=== PATIENT | male | born 1975 | race Caucasian/White ===

== ENCOUNTER 2021-11-10 08:43 | Emergency (ER) | payer BC, SELFPAY ==
[2021-11-10] VITALS (25 sets, daily range): BP systolic 136–151; BP diastolic 87–115; PULSE 74–102; TEMP 36.7; O2SAT 93–100; BMI 29.3
--- NOTE | 2021-11-10 09:02 | ED_ITS ---
HPI - SOB/Dyspnea General Date Seen: 11/10/21 Chief Complaint: Shortness of Breath/Dyspnea Stated Complaint: Asthma attack Time Seen by Provider: 11/10/21 08:48 Source: patient Mode of arrival: ambulatory Limitations: no limitations History of Present Illness HPI Narrative: Patient is a 46-year-old gentleman who presents here with complaints of shortness of breath. He was cleaning with bleach last night approximately at 9:00 p.m., he for got to open his windows, he said overnight his asthma kicked up, and this morning he tried his inhaler twice with no improvement. He does use albuterol, and uses this with both nebulize treatments and meter dose inhaler, but she has used his meter dose inhaler. He is also on Advair unknown dosage. Denies any fevers chills or sweats, he has had no exposure to COVID, and is not really interested in getting tested despite my suggestion. He is not immunized, has a history of asthma, that I reviewed his chart. He has a history of atopic eczema also. No fevers chills or sweats, no leg swelling, no recent trips, he says this feels exactly like his asthma when it occurs. MD elicited complaint: shortness of breath and asthma attack Pertinent past history: asthma Onset (ago): hour(s) (12) Context: allergen exposure Timing: constant Severity: moderate Exacerbating factors: lying flat and deep breaths Relieving factors: nothing Known history of: asthma Associated symptoms: denies other symptoms Treatment prior to arrival: bronchodilator Related Data Home oxygen amount: none Home Medications Medication Instructions Recorded Confirmed albuterol sulfate 2.5 mg/3 mL mg 11/10/21 (0.083 %) solution for nebulization albuterol sulfate 90 mcg/actuation inhalation 11/10/21 aerosol inhaler (Ventolin HFA) cetirizine 10 mg tablet mg 11/10/21 fluoxetine 40 mg capsule mg 11/10/21 fluticasone 250 mcg-salmeterol 50 inhalation 11/10/21 mcg/dose blistr powdr for inhalation (Advair Diskus) montelukast 10 mg tablet mg 11/10/21 triamcinolone acetonide 0.1 % applic topical 11/10/21 topical cream Previous Rx's Medication Instructions Recorded prednisone 50 mg tablet 50 mg PO DAILY 5 days #5 tabs 11/10/21 Allergies Allergy/AdvReac Type Severity Reaction Status Date / Time cat dander Allergy Unknown Verified 11/10/21 08:51 Review of Systems Status of ROS: Reports: 10 or more systems reviewed and unremarkable except as noted in History and below [facility] Social History Smoking Status: Never smoker Do you use any of these nicotine containing products: None Second hand tobacco smoke exposure: No How often do you have a drink containing alcohol: never How often do you have six or more drinks on one occasion: Never AUDIT-C Alcohol total score: 0 Non-prescribed substance use: denies use Exam Narrative: Exam Narrative: Patient is a very nice gentleman in room 5 in no apparent distress, is speaking to me in full to slightly broken sentences. He appears nontoxic. Sitting up, His pupils are equal round reactive to light, he has no scleral icterus redness, is TMs are normal, his oropharynx is arm all maybe a little bit reddened. No tonsillar swelling or exudates are noted, there is no lymphadenopathy, his chest shows hyperinflation bilaterally, sitting forward slightly to breathe, there are no so other signs of respiratory distress, he has musical wheezes in all lung walker on expiration, heart sounds no clicks murmurs or gallops noted, S1-S2 is normal, his abdomen is soft and scaphoid, there is no pedal splenomegaly, is extremities reveal no swelling or pitting edema, he has terrible eczema, with excoriations over his truncal region legs and arms bilaterally. And he has seborrheic dermatitis on noted on his hairline. No infections are noted. Neurologically intact in his upper lower extremities moving all extremities independently well symmetrical power Const: Vital Signs, click to edit/add: Vital Signs - 24 hr 11/10/21 08:48 11/10/21 08:53 11/10/21 08:54 Temperature 98.0 F Pulse Rate 101 H 100 Pulse Rate [Right Pulse Oximeter] 99 Blood Pressure 151/99 H Blood Pressure [Le ft Upper Arm] 151/99 H Pulse Oximetry 95 93 94 Oxygen Delivery Me thod Room Air 11/10/21 09:00 11/10/21 09:02 11/10/21 09:15 Temperature Pulse Rate 99 95 102 H Pulse Rate [Right Pulse Oximeter] Blood Pressure 150/115 H Blood Pressure [Le ft Upper Arm] Pulse Oximetry 95 93 95 Oxygen Delivery Me thod 11/10/21 09:17 11/10/21 09:18 11/10/21 09:30 Temperature Pulse Rate 92 96 76 Pulse Rate [Right Pulse Oximeter] Blood Pressure 151/87 H Blood Pressure [Le ft Upper Arm] Pulse Oximetry 100 100 100 Oxygen Delivery Me thod 11/10/21 09:32 11/10/21 09:33 11/10/21 09:45 Temperature Pulse Rate 93 102 H 101 H Pulse Rate [Right Pulse Oximeter] Blood Pressure 138/105 H Blood Pressure [Le ft Upper Arm] Pulse Oximetry 100 100 96 Oxygen Delivery Me thod 11/10/21 09:47 11/10/21 09:48 11/10/21 10:00 Temperature Pulse Rate 95 94 101 H Pulse Rate [Right Pulse Oximeter] Blood Pressure 136/101 H Blood Pressure [Le ft Upper Arm] Pulse Oximetry 97 96 93 Oxygen Delivery Me thod 11/10/21 10:01 11/10/21 10:02 11/10/21 10:15 Temperature Pulse Rate 92 98 94 Pulse Rate [Right Pulse Oximeter] Blood Pressure Blood Pressure [Le ft Upper Arm] Pulse Oximetry 94 95 94 Oxygen Delivery Me thod 11/10/21 10:16 11/10/21 10:17 11/10/21 10:30 Temperature Pulse Rate 101 H 100 93 Pulse Rate [Right Pulse Oximeter] Blood Pressure Blood Pressure [Le ft Upper Arm] Pulse Oximetry 94 95 95 Oxygen Delivery Me thod 11/10/21 10:31 11/10/21 10:32 11/10/21 10:45 Temperature Pulse Rate 74 93 100 Pulse Rate [Right Pulse Oximeter] Blood Pressure Blood Pressure [Le ft Upper Arm] Pulse Oximetry 95 96 97 Oxygen Delivery Me thod Course Reevaluation(s) Reevaluation #1: Recheck of the patient he is speaking to me in full sentences, he feels much improved, examination reveals occasional expiratory wheezes, but overall much improved. 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 We went over signs and symptoms of worsening, he should follow up if these occur, recommend follow-up primary care within the into the week. Return as needed for worsening Time: 10:54 Vital Signs Vital signs: Initial Vital Signs Temperature 98.0 F 11/10/21 08:48 Temperature Source Temporal Artery Scan 11/10/21 08:48 Pulse Rate 99 11/10/21 08:48 Blood Pressure 151/99 H 11/10/21 08:48 Blood Pressure Mean 116 11/10/21 08:48 Blood Pressure Position Supine 11/10/21 08:48 Pulse Oximetry 95 11/10/21 08:48 Oxygen Delivery Method 11/10/21 08:48 Vital Signs Temperature 98.0 F 11/10/21 08:48 Pulse Rate 99 11/10/21 08:48 Blood Pressure 151/99 H 11/10/21 08:48 Pulse Oximetry 95 11/10/21 08:48 Oxygen Delivery Method 11/10/21 08:48 Temperature 98.0 F 11/10/21 08:48 Pulse Rate 100 11/10/21 10:45 Blood Pressure 136/101 H 11/10/21 09:47 Pulse Oximetry 97 11/10/21 10:45 Oxygen Delivery Method 11/10/21 08:48 MDM - SOB/Dyspnea MDM Narrative Medical decision making narrative: Life-threatening differential diagnosis includes occluded COPD exacerbation, pulmonary edema, acute coronary syndromes, pulmonary embolism, pneumonia, and pneumothorax. Other differential diagnosis considerations include asthma, bronchitis as well as other etiologies Medical Records Attestation: I reviewed the patient's medical records. Lab Data Labs: Lab Results 11/10/21 Range/Units 09:21 SARS-CoV-2 (PCR) Negative SARS-CoV-2 (Negative) Influenza Type A (PCR) Negative PCR FLU A (Negative) Influenza Type B (PCR) Negative PCR FLU B (Negative) Discharge Plan Discharge Clinical Impression: Asthma with acute exacerbation Patient Disposition: Home, Self-Care Condition: Improved Instructions: Asthma (ED), How to Use a Metered-Dose Inhaler (ED), How to Use a Nebulizer (ED), Wheezing (ED) Additional Instructions: Home rest medications as directed I have given you prescription for prednisone, that you can use. Also given you an extra meter dose inhaler. Increasing shortness of breath, or other issue she should come back. Please use your inhaled steroid along with the prednisone. Follow-up with primary care should be done later in the week. Increasing shortness of breath, chest pain, or other issues please come back to the ER . Prescriptions: New prednisone 50 mg tablet 50 mg PO DAILY 5 Days Qty: 5 0RF No Action fluoxetine 40 mg capsule Label Comments: TAKE ONE CAPSULE BY MOUTH EVERY DAY IN THE MORNING. fluticasone propion-salmeterol [Advair Diskus] 250-50 mcg/dose blister with device INHALATION Label Comments: INHALE ONE PUFF BY MOUTH TWICE DAILY albuterol sulfate 2.5 mg /3 mL (0.083 %) solution for nebulization Label Comments: INHALE 1 VIAL (3ml) VIA NEBULIZER EVERY 4 HOURS NEEDED FOR SHORTNESS OF BREATH / WHEEZING. cetirizine 10 mg tablet Label Comments: TAKE ONE TABLET BY MOUTH ONE TIME DAILY triamcinolone acetonide 0.1 % cream TOPICAL Label Comments: Apply topically to affected area(s) 3 times daily. Do not use for more than 2 weeks in a row montelukast 10 mg tablet Label Comments: Take 1 Tablet (10 mg) by mouth at bedtime. albuterol sulfate [Ventolin HFA] 90 mcg/actuation HFA aerosol inhaler INHALATION Label Comments: INHALE 2 PUFFS BY MOUTH 4 TIMES DAILY IF NEEDED FOR SHORTNESS OF BREATH OR WHEEZING. Follow Up/Referrals: Tim Minor MD [Referring] - Stand Alone Forms: [employer] Info Instructions
[2021-11-10] MEDS: IPRAT-ALBUT 0.5-2.5 MG/3 ML NEB 1 NEB IH (09:03)
[2021-11-10] MEDS: predniSONE 10 MG TABLET 50 MG PO (09:06)
[2021-11-10] MEDS: ALBUTEROL SULFATE 2.5 MG/3 ML VIAL.NEB NEB ×2 (09:14→09:18)
--- NOTE | 2021-11-10 09:20 | ED.NURSE ---
RT in RM to assess pt, RT administered nebs to pt while in RM.
--- NOTE | 2021-11-10 10:00 | ED.NURSE ---
Pt reporting improvement in SOB symptoms. Pt requesting a soda, pt provided with Coca[employer].
[2021-11-10 10:04] LABS: PCR FLU A Negative PCR FLU A (Negative); PCR FLU B Negative PCR FLU B (Negative); SARS PCR* Negative SARS-CoV-2 (Negative)
--- NOTE | 2021-11-10 10:33 | RESP.RT ---
pt assessed. Tight expiratory wheezing in all walker. On RA SP)2 97% Sitting slightly forward. RR 24, Talking rapidly in full sentences. PT not aware of any triggers, however when he speaks of his living situation, a number a possibility, including a cat. He states he does have his inhalers at home. Pt was given a duoneb by RN before arrival. I followed up with 2.5 mg of albuterol back to back. Improved aeration, with Inspiratory and Expiratory wheezing. Pt taking his prednisone. Would given another albuterol neb at 1045 and follow up with a Duonb at 1125 or 1130
== END 2021-11-10 11:11 | disposition home or self-care (01) ==
PROVIDERS: Emergency Provider Family Medicine; PCP Student in an Organized Health Care Education/Training Program
DX: J45.901 Unspecified asthma with (acute) exacerbation (principal)
CPT/HCPCS: 87631; 94640; 99284; J7512

== ENCOUNTER 2023-08-09 01:34 | Emergency (ER) | payer BC, SELFPAY ==
[2023-08-09 01:41] VITALS: BP 161/92; PULSE 91; RESP 18; TEMP 36.3; O2SAT 93; BMI 29.8
--- NOTE | 2023-08-09 01:53 | ED.GENADULT ---
HPI - General Adult General Chief complaint: Asthma Stated complaint: asthma attack Time Seen by Provider: 08/09/23 01:53 History of Present Illness HPI narrative: about 1 hour hx of asthma attack, patients usually uses an albuterol neb at home but reports it is not working so he has not taken any meds for this. 48-year-old man presenting to the emergency department with concern of attack of asthma. Does usually use albuterol nebulization but having trouble with a nebulizer. No medications. It abruptly. No fever. Not really coughing more or less than usual. Contrary to record clearly does smoke. He does endorse this in conversation. Related Data Home Medications ?Medication ?Instructions ?Recorded ?Confirmed albuterol sulfate 2.5 mg/3 mL mg 11/10/21 (0.083 %) solution for nebulization albuterol sulfate 90 mcg/actuation inhalation 11/10/21 aerosol inhaler (Ventolin HFA) cetirizine 10 mg tablet mg 11/10/21 fluoxetine 40 mg capsule mg 11/10/21 fluticasone 250 mcg-salmeterol 50 inhalation 11/10/21 mcg/dose blistr powdr for inhalation (Advair Diskus) montelukast 10 mg tablet mg 11/10/21 triamcinolone acetonide 0.1 % applic topical 11/10/21 topical cream Previous Rx's ?Medication ?Instructions ?Recorded prednisone 50 mg tablet 50 mg PO DAILY 5 days #5 tabs 11/10/21 ipratropium 0.5 mg-albuterol 3 mg 3 ml inhalation Q6-8H PRN For 08/09/23 (2.5 mg base)/3 mL nebulization shortness of breath or wheezing soln #90 mL Allergies Allergy/AdvReac Type Severity Reaction Status Date / Time cat dander Allergy Unknown Verified 11/10/21 08:51 Review of Systems Status of ROS: Reports: 6 or more systems reviewed and unremarkable except as noted in History and below PFSH PFSH Social History Smoking Status: Never smoker Do you use any of these nicotine containing products: None Second hand tobacco smoke exposure: No How often do you have a drink containing alcohol: never How often do you have six or more drinks on one occasion: Never AUDIT-C Alcohol total score: 0 Non-prescribed substance use: denies use Exam Narrative: Exam Narrative: Pleasant. Talkative. Mostly edentulous. Lung auscultation though is moving very little air. There trace expiratory wheezes. Diffuse seborrhea and heavy eczema particularly over the hands forearms. Heart in mildly elevated rate but regular rhythm. Extremities are thin and without edema. Const: Vital Signs, click to edit/add: Vital Signs - 24 hr 08/09/23 01:41 Temperature 97.4 F L Pulse Rate [Pulse Oximeter] 91 Respiratory Rate 18 Blood Pressure [Ri ght Upper Arm] 161/92 H Pulse Oximetry 93 Oxygen Delivery Me thod Room Air Documenting provider has reviewed patient's vital signs: yes Course Vital Signs Vital signs: Initial Vital Signs Temperature 97.4 F L 08/09/23 01:41 Temperature Source Temporal Artery Scan 08/09/23 01:41 Pulse Rate 91 08/09/23 01:41 Respiratory Rate 18 08/09/23 01:41 Blood Pressure 161/92 H 08/09/23 01:41 Blood Pressure Mean 115 H 08/09/23 01:41 Blood Pressure Position Sitting 08/09/23 01:41 Pulse Oximetry 93 08/09/23 01:41 Oxygen Delivery Method Room Air 08/09/23 01:41 Vital Signs Temperature 97.4 F L 08/09/23 01:41 Pulse Rate 91 08/09/23 01:41 Respiratory Rate 18 08/09/23 01:41 Blood Pressure 161/92 H 08/09/23 01:41 Pulse Oximetry 93 08/09/23 01:41 Oxygen Delivery Method Room Air 08/09/23 01:41 Temperature 97.4 F L 08/09/23 01:41 Pulse Rate 91 08/09/23 01:41 Respiratory Rate 18 08/09/23 01:41 Blood Pressure 161/92 H 08/09/23 01:41 Pulse Oximetry 93 08/09/23 01:41 Oxygen Delivery Method Room Air 08/09/23 01:41 Medications Administered Medications: Discontinued Medications Generic Name Dose Route Start Last Admin Trade Name Freq PRN Reason Stop Dose Admin Albuterol/Ipratropium 1 neb 08/09/23 01:58 08/09/23 02:03 Iprat-Albut 0.5-2.5 Mg/3 Ml Neb IH 08/09/23 01:59 1 neb ONCE ONE Administration Prednisone 60 mg 08/09/23 01:58 08/09/23 02:10 Prednisone 20 Mg Tablet PO 08/09/23 01:59 60 mg ONCE ONE Administration Medical Decision Making MDM Narrative Medical decision making narrative: Does sound to be typical asthma exacerbation. Though I think likely has COPD. Would consider this COPD exacerbation particular with history of nicotine dependence. Has not had recent pulmonary function testing or other evaluation per his recollection. Ordered for DuoNeb. Pending improvement here would consider further evaluation for infectious etiology otherwise, pneumonia, pulmonary embolus, pneumothorax. Was in usual state of health with rather abrupt onset as noted above. Also given dose of prednisone. On reassessment is definitely moving more air. He feels better; feels like his chest is less tight. Feels well enough to leave the emergency department. See patient discharge plan for further discussion Medical Records Medical records reviewed: Yes I reviewed the patient's medical records Discharge Plan Discharge Clinical Impression: Asthma exacerbation Patient Disposition: Home, Self-Care Condition: Improved Additional Instructions: Please take this nebulizer tubing and cup with you. I understand you have a prescription for a new nebulizer waiting. I am sending in some DuoNebs for you as well. I would take those 3-4 times daily over the next 3 days. Would consider following up for re-evaluation of pulmonary function to be sure that we are optimizing treatment for you. Do not take more than 9 treatments of albuterol in a 24 hour period. Please do you can to quit smoking. Prescriptions: New ipratropium-albuterol 0.5 mg-3 mg(2.5 mg base)/3 mL solution for nebulization 3 ml inhalation Q6-8H PRN (Reason: For shortness of breath or wheezing) Qty: 90 0RF No Action fluoxetine 40 mg capsule Patient Comments: TAKE ONE CAPSULE BY MOUTH EVERY DAY IN THE MORNING. fluticasone propion-salmeterol [Advair Diskus] 250-50 mcg/dose blister with device INHALATION Patient Comments: INHALE ONE PUFF BY MOUTH TWICE DAILY albuterol sulfate 2.5 mg /3 mL (0.083 %) solution for nebulization Patient Comments: INHALE 1 VIAL (3ml) VIA NEBULIZER EVERY 4 HOURS NEEDED FOR SHORTNESS OF BREATH / WHEEZING. cetirizine 10 mg tablet Patient Comments: TAKE ONE TABLET BY MOUTH ONE TIME DAILY triamcinolone acetonide 0.1 % cream TOPICAL Patient Comments: Apply topically to affected area(s) 3 times daily. Do not use for more than 2 weeks in a row montelukast 10 mg tablet Patient Comments: Take 1 Tablet (10 mg) by mouth at bedtime. albuterol sulfate [Ventolin HFA] 90 mcg/actuation HFA aerosol inhaler INHALATION Patient Comments: INHALE 2 PUFFS BY MOUTH 4 TIMES DAILY IF NEEDED FOR SHORTNESS OF BREATH OR WHEEZING. prednisone 50 mg tablet 50 mg PO DAILY 5 Days Qty: 5 0RF Follow Up/Referrals: WES GOMEZ DO [Primary Care Provider] - Stand Alone Forms: [employer] Info Instructions
[2023-08-09] MEDS: IPRAT-ALBUT 0.5-2.5 MG/3 ML NEB 1 NEB IH (02:03)
[2023-08-09] MEDS: predniSONE 20 MG TABLET 60 MG PO (02:10)
== END 2023-08-09 02:49 | disposition home or self-care (01) ==
PROVIDERS: Emergency Provider Family Medicine; PCP Student in an Organized Health Care Education/Training Program
DX: J45.901 Unspecified asthma with (acute) exacerbation (principal)
CPT/HCPCS: 94640; 99284; J7512

== ENCOUNTER 2023-11-02 08:07 | Emergency (ER) | payer BC, SELFPAY ==
[2023-11-02 08:12] VITALS: BP 142/105; PULSE 103; RESP 28; TEMP 36.9; O2SAT 79; BMI 31.4
[2023-11-02 08:21] VITALS: O2SAT 95
--- NOTE | 2023-11-02 08:22 | CRLHL7_ITS ---
For Patients: As a result of the Century Cures Act, medical imaging exams and procedure reports are released immediately into your electronic medical record. You may view this report before your referring provider. If you have questions, please contact your health care provider. Indication: Shortness of breath Technique: Chest 1 view Comparison: Chest x-ray 07/10/2017 Findings/Impression: Cardiovascular and mediastinum: Heart size and vasculature are normal in caliber and appearance. Lungs and pleural space: No pleural effusion or pneumothorax. Mild bilateral bronchial wall thickening which can be seen in bronchitis reactive airways disease. Minimal discoid atelectasis. Bones and soft tissues: No acute findings. Dictated by Elias Mccoy MD @ 11/02/2023 8:59:19 AM (Electronically Signed)
--- NOTE | 2023-11-02 08:25 | ED.GENADULT ---
HPI - General Adult General Date Seen: 11/02/23 Chief complaint: Shortness of Breath/Dyspnea Stated complaint: cant breathe asthma attack Time Seen by Provider: 11/02/23 08:07 Source: patient, RN notes reviewed and old records reviewed Mode of arrival: ambulatory Limitations: no limitations History of Present Illness HPI narrative: Patient is a 48-year-old man who presents for evaluation of difficulty breathing which he relates to an asthma exacerbation. He says he has been having trouble for the past few hours, has tried his albuterol neb and inhaler without good relief. He specifically denies any chest pain, lower extremity swelling or pain, fevers, cough, congestion, vomiting, diarrhea. He tells me that he has previously been hospitalized for asthma, though I do not see anything in our records. He denies prior intubation or ICU stay. He denies tobacco use or alcohol use. Here today with his dad. Related Data Home Medications ?Medication ?Instructions ?Recorded ?Confirmed albuterol sulfate 2.5 mg/3 mL mg 11/10/21 (0.083 %) solution for nebulization albuterol sulfate 90 mcg/actuation inhalation 11/10/21 aerosol inhaler (Ventolin HFA) cetirizine 10 mg tablet mg 11/10/21 fluoxetine 40 mg capsule mg 11/10/21 fluticasone 250 mcg-salmeterol 50 inhalation 11/10/21 mcg/dose blistr powdr for inhalation (Advair Diskus) montelukast 10 mg tablet mg 11/10/21 triamcinolone acetonide 0.1 % applic topical 11/10/21 topical cream Previous Rx's ?Medication ?Instructions ?Recorded prednisone 50 mg tablet 50 mg PO DAILY 5 days #5 tabs 11/10/21 ipratropium 0.5 mg-albuterol 3 mg 3 ml inhalation Q6-8H PRN For 08/09/23 (2.5 mg base)/3 mL nebulization shortness of breath or wheezing soln #90 mL Allergies Allergy/AdvReac Type Severity Reaction Status Date / Time cat dander Allergy Unknown Verified 11/02/23 10:06 Review of Systems Status of ROS: Reports: 10 or more systems reviewed and unremarkable except as noted in History and below PFSH PFSH Social History Smoking Status: Never smoker Do you use any of these nicotine containing products: None Second hand tobacco smoke exposure: No How often do you have a drink containing alcohol: never How often do you have six or more drinks on one occasion: Never AUDIT-C Alcohol total score: 0 Non-prescribed substance use: denies use service: No Exam Narrative: Exam Narrative: Vital signs as noted above. In general, an alert, middle aged male who looks short of breath. He is speaking in long phrases. Head: Normocephalic, atraumatic. Eyes: Pupils are equal reactive. Extraocular movements are full. Conjunctivae are normal. ENT: Mucous membranes are moist. Neck: Supple without lymphadenopathy. Heart: Regular rate and rhythm. No murmur or rub. Lungs: Breath sounds are a little quiet though he is moving air. No significant wheezing at the time of my initial exam. Abdomen: Soft and nontender. No organomegaly. Extremities: Well perfused. No edema. No calf tenderness. Pulses intact. Neurologic: Patient is alert and oriented to person and place. Speech is fluent. Face is symmetric. Moves all extremities equally. Affect: Normal. Skin: Warm and dry. Well perfused. Diffuse seborrhea. Const: Vital Signs, click to edit/add: Vital Signs - 24 hr 11/02/23 08:12 11/02/23 08:21 Temperature 98.5 F Pulse Rate [Pulse Oximeter] 103 H Respiratory Rate 28 H Blood Pressure [Ri ght Upper Arm] 142/105 H Pulse Oximetry 79 L 95 Oxygen Delivery Me thod Room Air Course Course ED Course: On arrival, patient was significantly hypoxic. He was placed on oxygen by OxyMask at 10 L. O2 sats are 93-95%. He still has a little bit of increased work of breathing however. I do not hear significant bronchospasm but will try DuoNeb as he is possibly not moving enough air to be wheezy yet. If we do not note any change with DuoNeb, would consider BiPAP for respiratory support. Chest x-ray, labs pending. EKG showed a sinus tachycardia, ventricular rate of 107, frequent PVCs. There are enough PVCs that it is a little hard to definitively say, but there is a suggestion of electrical alternans. I did look with the bedside ultrasound, no significant pericardial effusion. Right ventricle looks normal, the right atrium did look enlarged to me. He also seems to have somewhat poor movement of the anterior wall, he does not note prior history of any cardiac problems. He is fairly limited in what he wants to do here, did not want an IV, did not want to change into a gown, ultimately did agree those things. After DuoNeb, he is now wheezing, he feels improved. He is being weaned off of oxygen. Will see how he does and if he needs additional treatment. Labs are mostly pending but hemoglobin is 12.8, normal white blood cell count. Venous gas shows a pH of 7 point 3 8, pCO2 44 and bicarb of 26, so this is reassuring. Remainder of labs are pending. D-dimer was elevated at 2 and I did recommend a CT scan of the chest. Metabolic panel was normal, LFTs notable only for an AST of 46. BNP was 572, CRP normal. CT scan of the chest by my review did not show evidence of pulmonary embolism, he did have a little bit of infiltrate tore something in the right anterior lung, radiology reads this as follows: FINDINGS: : HEART and MEDIASTINUM: The heart size is normal. There is no mediastinal or hilar adenopathy or mass. There is no pericardial effusion. PULMONARY ARTERIAL CIRCULATION: There is no visible intraluminal filling defect to suggest pulmonary embolus. LUNGS and PLEURAL SPACES: A few linear bands are noted at the lung bases consistent with atelectasis or scarring. A dense band of what is likely scarring is also noted anteriorly in the right upper lobe. No pleural effusion or pneumothorax VISUALIZED UPPER ABDOMEN: The limited visualized upper abdominal structures appear normal. There has been a cholecystectomy OSSEOUS STRUCTURES: Age-appropriate appearance. No acute fracture or destructive process.There is a left paravertebral nodule identified. This measures about 9 millimeters and is best seen on series 4, image 42. This is low-density and does not apparently enhance. This may be pleural-based or associated with paravertebral soft tissues unrelated to the lung. This is likely benign though I would recommend a six-month follow-up CT. TUBES and LINES: None. IMPRESSION: 1. There is no evidence of acute pulmonary embolus. 2. Linear areas of atelectasis and scarring. 3. Small 9 millimeter left paravertebral nodule of uncertain clinical significance. This may be arising from the pleura or the paravertebral soft tissues. Recommend a six-month follow-up CT to re-evaluate this area. Findings were discussed with the patient, I have asked him to follow up with primary care for a repeat CT in 6 months time. With regard to his presentation today, he is improved, did still have some wheezing and I gave him a 2nd neb, albuterol 2.5 mg. He is feeling better, not requiring oxygen, and I think can go home with treatment for asthma exacerbation. If he is worsening, has new symptoms such as significant chest pain, fevers, worsening shortness of breath etcetera return at any time. Workup today does not reveal any evidence of pneumonia, congestive heart failure, acute coronary syndrome, pulmonary embolism, or other acute findings. Vital Signs Vital signs: Initial Vital Signs Respiratory Effort Labored 11/02/23 08:11 Respiratory Depth Normal 11/02/23 08:11 Respiratory Pattern Tachypnea 11/02/23 08:11 Vital Signs Temperature 98.5 F 11/02/23 08:12 Pulse Rate 103 H 11/02/23 08:12 Respiratory Rate 28 H 11/02/23 08:12 Blood Pressure 142/105 H 11/02/23 08:12 Pulse Oximetry 79 L 11/02/23 08:12 Oxygen Delivery Method Room Air 11/02/23 08:12 Temperature 98.5 F 11/02/23 08:12 Pulse Rate 103 H 11/02/23 08:12 Respiratory Rate 28 H 11/02/23 08:12 Blood Pressure 142/105 H 11/02/23 08:12 Pulse Oximetry 95 11/02/23 08:21 Oxygen Delivery Method Room Air 11/02/23 08:12 Medications Administered Medications: Discontinued Medications Generic Name Dose Route Start Last Admin Trade Name Freq PRN Reason Stop Dose Admin Albuterol 2.5 mg 11/02/23 10:43 11/02/23 10:49 Albuterol Sulfate 2.5 Mg/3 Ml Vial.Neb NEB 11/02/23 10:44 2.5 mg ONCE ONE Administration Albuterol/Ipratropium 1 neb 11/02/23 08:21 11/02/23 08:35 Iprat-Albut 0.5-2.5 Mg/3 Ml Neb IH 11/02/23 08:22 1 neb ONCE ONE Administration Diphenhydramine HCl 50 mg 11/02/23 11:46 11/02/23 11:59 Diphenhydramine 25 Mg Capsule PO 11/02/23 11:47 50 mg ONCE ONE Administration Prednisone 60 mg 11/02/23 08:21 11/02/23 08:35 Prednisone 20 Mg Tablet PO 11/02/23 08:22 60 mg ONCE ONE Administration Medical Decision Making Lab Data Labs: Lab Results 11/02/23 Range/Units 08:25 WBC 9.74 (4.50-11.00) K/uL RBC 4.45 (4.30-5.90) m/uL Hgb 12.8 L (13.5-17.5) gm/dL Hct 39.5 (37.0-53.0) % MCV 89 (80-100) fL MCH 29 (26-34) pg MCHC 32 (32-36) gm/dL RDW Coeff of Lola 13.2 (11.5-15.5) % Plt Count 309 (140-440) K/uL Neut % (Auto) 50.1 (42.0-72.0) % Lymph % (Auto) 19.2 L (20-44) % [place] % (Auto) 5.9 (0.0-11.0) % Eos % (Auto) 24.1 H (0.0-7.0) % Baso % (Auto) 0.5 (0.0-3.0) % Neut # (Auto) 4.88 (1.7-7.0) K/uL Lymph # (Auto) 1.90 (0.90-2.90) K/uL [place] # (Auto) 0.60 (0.00-0.90) K/UL Eos # (Auto) 2.30 H (0.00-0.50) K/uL Baso # (Auto) 0.05 (0.00-0.30) K/uL Abs Immat Gran (auto) 0.02 (0.00-0.30) K/uL Imm/Tot Granulo (auto) 0.2 % D-Dimer Quant (PE/DVT) 2.02 H (0.00-0.50) ug/ml VBG pH 7.385 (7.32-7.43) VBG pCO2 44 (40-50) mmHG VBG pO2 66.9 H (25-47) mmHG VBG HCO3 26 (21-28) mmol/L Sodium 138 (135-149) mmol/L Potassium 3.7 (3.6-5.1) mmol/L Chloride 107 (96-114) mmol/L Carbon Dioxide 26 (20-32) mmol/L Anion Gap 5 L (7-15) mEq/L BUN 11 (5-24) mg/dL Creatinine 1.0 (0.5-1.5) mg/dL Estimated Creat Clear 97.26 Estimated GFR 93 ml/min Glucose 95 (60-115) mg/dL Calcium 8.4 (8.4-10.6) mg/dL Magnesium 2.3 (1.5-2.6) mg/dL Total Bilirubin 0.5 (0.1-1.5) mg/dL Direct Bilirubin 0.2 (0.0-0.5) mg/dL AST 46 H (12-35) U/L ALT 38 (4-50) U/L Alkaline Phosphatase 87 (40-150) U/L C-Reactive Protein 0.6 (0.5-1.0) mg/dL NT-Pro-B Natriuret Pep 572 pg/mL Total Protein 5.6 L (6.0-8.3) g/dL Albumin 3.4 (3.3-5.0) g/dL POC Troponin I 0.01 (0.01-0.04) ng/ml Discharge Plan Discharge Clinical Impression: Asthma with acute exacerbation Patient Disposition: Home, Self-Care Condition: Improved Instructions: Asthma (DC) Additional Instructions: Take prednisone as prescribed. Continue to use your albuterol as needed. For significant shortness of breath, new symptoms such as high fevers, chest pain or other worsening return to the ER. The radiologist has recommended that you have a repeat CT scan in 6 months. Please arrange this through your primary care doctor. Prescriptions: No Action ipratropium-albuterol 0.5 mg-3 mg(2.5 mg base)/3 mL solution for nebulization 3 ml inhalation Q6-8H PRN (Reason: For shortness of breath or wheezing) Qty: 90 0RF fluoxetine 40 mg capsule Patient Comments: TAKE ONE CAPSULE BY MOUTH EVERY DAY IN THE MORNING. fluticasone propion-salmeterol [Advair Diskus] 250-50 mcg/dose blister with device INHALATION Patient Comments: INHALE ONE PUFF BY MOUTH TWICE DAILY albuterol sulfate 2.5 mg /3 mL (0.083 %) solution for nebulization Patient Comments: INHALE 1 VIAL (3ml) VIA NEBULIZER EVERY 4 HOURS NEEDED FOR SHORTNESS OF BREATH / WHEEZING. cetirizine 10 mg tablet Patient Comments: TAKE ONE TABLET BY MOUTH ONE TIME DAILY triamcinolone acetonide 0.1 % cream TOPICAL Patient Comments: Apply topically to affected area(s) 3 times daily. Do not use for more than 2 weeks in a row montelukast 10 mg tablet Patient Comments: Take 1 Tablet (10 mg) by mouth at bedtime. albuterol sulfate [Ventolin HFA] 90 mcg/actuation HFA aerosol inhaler INHALATION Patient Comments: INHALE 2 PUFFS BY MOUTH 4 TIMES DAILY IF NEEDED FOR SHORTNESS OF BREATH OR WHEEZING. prednisone 50 mg tablet 50 mg PO DAILY 5 Days Qty: 5 0RF Follow Up/Referrals: WES GOMEZ DO [Primary Care Provider] - Stand Alone Forms: [employer] Info Instructions
[2023-11-02] MEDS: predniSONE 20 MG TABLET 60 MG PO (08:35)
[2023-11-02] MEDS: IPRAT-ALBUT 0.5-2.5 MG/3 ML NEB 1 NEB IH (08:35)
[2023-11-02 08:37] LABS: Basophils Absolute Auto 0.05 K/uL (0.00-0.30); Basophils Percent Auto 0.5 % (0.0-3.0); Eosinophils Percent Auto 24.1 % (0.0-7.0); Hematocrit 39.5 % (37.0-53.0); Hemoglobin* 12.8 gm/dL (13.5-17.5); Immature Granulocytes Abs Auto 0.02 K/uL (0.00-0.30); Immature Granulocytes Pct Auto 0.2 %; Lymphocytes Percent Auto 19.2 % (20-44); Mean Corpuscular HGB Conc 32 gm/dL (32-36); Mean Corpuscular Hemoglobin 29 pg (26-34); Mean Corpuscular Volume 89 fL (80-100); Monocytes Percent Auto 5.9 % (0.0-11.0); Neutrophils Absolute Auto 4.88 K/uL (1.7-7.0); Neutrophils Percent Auto 50.1 % (42.0-72.0); Platelet Count* 309 K/uL (140-440); RDW Coefficient of Variation % 13.2 % (11.5-15.5); Red Blood Count 4.45 m/uL (4.30-5.90); White Blood Count* 9.74 K/uL (4.50-11.00)
[2023-11-02 08:40] LABS: HCO3 VBG 26 mmol/L (21-28); PCO2 VBG 44 mmHG (40-50); PO2 VBG 66.9 mmHG (25-47); pH VBG 7.385 (7.32-7.43)
[2023-11-02 08:41] LABS: Slide Review Reflex No
[2023-11-02 08:55] LABS: Albumin* 3.4 g/dL (3.3-5.0); Chloride* 107 mmol/L (96-114)
[2023-11-02 08:56] LABS: Potassium* 3.7 mmol/L (3.6-5.1); Sodium* 138 mmol/L (135-149)
[2023-11-02 08:57] LABS: Troponin, Point-of-Care* 0.01 ng/ml (0.01-0.04)
[2023-11-02 08:58] LABS: Est. Creatinine Clearance* 97.26; Estimated Glomerular Filt Rate 93 ml/min
[2023-11-02 08:59] LABS: Alanine Aminotransferase* 38 U/L (4-50); Alkaline Phosphatase* 87 U/L (40-150); Anion Gap 5 mEq/L (7-15); Aspartate Amino Transferase* 46 U/L (12-35); Bilirubin Direct* 0.2 mg/dL (0.0-0.5); Bilirubin Total* 0.5 mg/dL (0.1-1.5); Blood Urea Nitrogen* 11 mg/dL (5-24); Carbon Dioxide* 26 mmol/L (20-32); Glucose* 95 mg/dL (60-115); Total Protein* 5.6 g/dL (6.0-8.3)
[2023-11-02 09:00] LABS: Calcium* 8.4 mg/dL (8.4-10.6); Magnesium* 2.3 mg/dL (1.5-2.6)
[2023-11-02 09:01] LABS: D Dimer Quantitative* 2.02 ug/ml (0.00-0.50)
[2023-11-02 09:02] LABS: C Reactive Protein* 0.6 mg/dL (0.5-1.0)
--- NOTE | 2023-11-02 09:21 | CRLHL7_ITS ---
For Patients: As a result of the Century Cures Act, medical imaging exams and procedure reports are released immediately into your electronic medical record. You may view this report before your referring provider. If you have questions, please contact your health care provider. INDICATION: Hypoxia. Elevated D-dimer. COMPARISON: None TECHNIQUE: : CT examination of the chest was performed with the uneventful intravenous administration of 95 cc of Isovue 370 while thin axial sections were obtained from above the apices of the lungs to the lung bases. The examination was timed as a pulmonary artery angiogram. Please note that all CT scans at this facility use dose modulation, iterative reconstruction, and/or weight-based dosing when appropriate to reduce radiation dose to as low as reasonably achievable. FINDINGS: : HEART and MEDIASTINUM: The heart size is normal. There is no mediastinal or hilar adenopathy or mass. There is no pericardial effusion. PULMONARY ARTERIAL CIRCULATION: There is no visible intraluminal filling defect to suggest pulmonary embolus. LUNGS and PLEURAL SPACES: A few linear bands are noted at the lung bases consistent with atelectasis or scarring. A dense band of what is likely scarring is also noted anteriorly in the right upper lobe. No pleural effusion or pneumothorax VISUALIZED UPPER ABDOMEN: The limited visualized upper abdominal structures appear normal. There has been a cholecystectomy OSSEOUS STRUCTURES: Age-appropriate appearance. No acute fracture or destructive process.There is a left paravertebral nodule identified. This measures about 9 millimeters and is best seen on series 4, image 42. This is low-density and does not apparently enhance. This may be pleural-based or associated with paravertebral soft tissues unrelated to the lung. This is likely benign though I would recommend a six-month follow-up CT. TUBES and LINES: None. IMPRESSION: 1. There is no evidence of acute pulmonary embolus. 2. Linear areas of atelectasis and scarring. 3. Small 9 millimeter left paravertebral nodule of uncertain clinical significance. This may be arising from the pleura or the paravertebral soft tissues. Recommend a six-month follow-up CT to re-evaluate this area. Please note that all CT scans at this facility use dose modulation, iterative reconstruction, and/or weight-based dosing when appropriate to reduce radiation dose to as low as reasonably achievable. Dictated by Jae Hopkins MD @ 11/02/2023 10:41:37 AM (Electronically Signed)
[2023-11-02 09:28] LABS: NT Pro B Type NatriureticPept* 572 pg/mL
[2023-11-02] MEDS: ALBUTEROL SULFATE 2.5 MG/3 ML VIAL.NEB NEB (10:49)
[2023-11-02] MEDS: diphenhydrAMINE 25 MG CAPSULE 50 MG PO (11:59)
== END 2023-11-02 11:59 | disposition home or self-care (01) ==
PROVIDERS: Emergency Provider Emergency Medicine; PCP Student in an Organized Health Care Education/Training Program
DX: J45.901 Unspecified asthma with (acute) exacerbation (principal)
CPT/HCPCS: 36415; 71045; 71275; 80048; 80076; 82803; 83735; 83880; 84484; 85025; 85379; 86140; 93005; 94640; 94761; 99284; 99285; A9270; J7512; Q9967

== ENCOUNTER 2023-12-16 15:08 | Emergency (ER) | payer BC, SELFPAY ==
[2023-12-16] VITALS (7 sets, daily range): BP systolic 118; BP diastolic 88; PULSE 85–98; RESP 22; TEMP 37; O2SAT 95–98; BMI 31.4
--- NOTE | 2023-12-16 15:26 | CRLHL7_ITS ---
For Patients: As a result of the Century Cures Act, medical imaging exams and procedure reports are released immediately into your electronic medical record. You may view this report before your referring provider. If you have questions, please contact your health care provider. INDICATION: Shortness of breath TECHNIQUE: Chest 2 views. COMPARISON: CT PE 11/02/2023, chest radiograph 11/02/2023 FINDINGS: Cardiovascular and mediastinum: Heart size is normal. Unremarkable mediastinum. Lungs and pleural spaces: Lungs are clear. No sign of infiltrate or mass. No sign of pleural effusion. No pneumothorax. Bones and soft tissues: No significant findings. IMPRESSION: No acute or significant findings. Dictated by Mercedes Akbar MD @ 12/16/2023 3:52:03 PM (Electronically Signed)
--- OUTSIDE RECORDS SUMMARY | 2023-12-16 15:45 | XMS_ITS | Clinical Summary ---
Author Organization [facility] Address [place], [place] [address] Care Team Providers Care [employer]able [employer] Tr[employer] Name Role Phone Lucas Rasheed MD Primary Care Provider Allergies Active Allergy Reactions Criticality Noted Date Comments Cats (Fur, Dander, Saliva) 01/27/2010 House Dust Shortness Of Breath 03/05/2008 Unlisted Allergen (Include Detail In Comments) Other - Describe In Comment Field 06/28/2006 spicy foods Medications Medication Sig Dispensed Refills Start Date End Date Status albuterol 0.083% (2.5 mg/3 mL) neb solutionIndications: Moderate persistent asthma without complication Inhale 3 mL (2.5 mg) via a nebulizer every 6 hours if needed for Shortness Of Breath. 120 mL 1 04/11/2023 Active fluticasone propion-salmeteroL (ADVAIR) 250-50 mcg/Dose diskus inhalerIndications:M oderate persistent asthma without complication Inhale 1 Puff by mouth two times daily. 60 Each 9 04/11/2023 Active loratadine (CLARITIN) 10 mg tabletIndications:Se asonal allergic rhinitis due to pollen Take 1 Tablet (10 mg) by mouth once daily. 90 Tablet 3 04/11/2023 Active montelukast (SINGULAIR) 10 mg tabletIndications:Mo derate persistent asthma without complication Take 1 Tablet (10 mg) by mouth at bedtime. 90 Tablet 3 04/11/2023 Active triamcinolone (ARISTOCORT; KENALOG) 0.1 % creamIndications:Pso riasis Apply topically to affected area(s) three times daily. Do not use for more than 2 weeks in a row 80 g 3 04/11/2023 Active cetirizine (ZYRTEC) 10 mg tabletIndications:Se asonal allergic rhinitis due to pollen TAKE ONE TABLET BY MOUTH ONE TIME DAILY 90 Tablet 3 05/13/2023 Active NebulizerIndications :Moderate persistent asthma without complication Nebulizer, disposable neb kit x 4, reuseable neb kit x 1, mask x 1, filters x 1. Frequency of use: daily; Medication: albuterol 0.083% (2.5 mg/3 mL) neb solution Length of need: 99 months 1 Each 07/07/2023 Active Ventolin HFA 90 mcg/actuation inhalerIndications:M oderate persistent asthma without complication INHALE 2 PUFFS BY MOUTH EVERY 2-3 HOURS NEEDED FOR BREATHING. 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 [phone] Anxiety state, unspecified 08/22/2007 0 2020 Dysthymic disorder 08/22/2007 Unspecified asthma(493.90) 05/23/2006 0 2020 Encounters Date Type Department Care Team Description 11/02/2023 Orders Only [facility] Scanner 1 scan: (1-Ord) [facility], XR CHEST 1V PORTABLE, 11/02/2023 11/02/2023 Orders Only [facility] Scanner 1 scan: (1-Ord) [facility], CT ANGIO CHEST, 11/02/2023 10/11/2023 Telephone [facility] [address] [place] [address] Lucas Rasheed MD Form from Last 3 Months Immunizations Name Administration Dates Next Due Influenza, IIV3 (Age >=3 years) 11/13/2009,03/04 Family History Medical History Relation Name Comments Diabetes Brother Cancer-colon No Family History Cancer-prostate No Family History Heart attack No Family History Relation Name Status Comments Brother Alive Father Alive Social History Tobacco Use Types Packs/Day Years Used Date Smoking Tobacco: Former Smokeless Tobacco: Never Tobacco Cessation:Counseling Given: No Comments:tried for a while Alcohol Use Standard Drinks/Week Comments No 0 (1 standard drink = 0.6 oz pur e alcohol) PHQ-2 Answer Date Recorded PHQ-2 TOTAL SCORE 3 06/02/2022 Social Connections Answer Date Recorded Frequency of Communication with Friends and Fami ly Not on file 02/14/2021 Financial Resource Strain Answer Date R ecorded Difficulty of Paying Living Expenses Not on file 02/14/2021 Difficulty of Paying Living Expenses Not on file 02/14/2021 Sex and Gender Information Value Date Recorded Sex Assigned at Not on file Gender Identity Not on file Sexual Orientation Not on file Obstetrics History Last Filed Vital Signs Vital Sign Reading Time Taken Comments Blood Pressure 130/78 04/11/2023 3:20 PM [employer] Pulse 99 04/11/2023 3:20 PM [employer] Temperature 36.8 ??C (98.3 ??F) 04/28/2020 3:03 PM CD T Respiratory Rate 16 07/27/2016 9:00 AM CDT Oxygen Saturation 95% 04/11/2023 3:20 PM [employer] Inhaled Oxygen Concentration - - Weight 81.7 kg (180 lb 3.2 oz) 04/11/2023 3:20 P M [employer] Height 177.8 cm (5' 10) 04/11/2023 3:20 PM [employer] Body Mass Index 25.86 04/11/2023 3:20 PM [employer] Plan of Treatment Health Maintenance Due Date Last Done Comments Pneumococcal series for age 6-64 (1 of 2 - PCV) 1982 Tdap 07/12/1987 HIV for age 15-65 07/12/1991 Hepatitis C screening for ag e 18-79 1994 Tetanus booster 01/18/2021 01/18/2011 (Declined) Colonoscopy through age 75 2021 Lipids for age 45-75 2021 Depression screening for age 12+ 06/03/2023 06/02/2022, 04/19/2022, 2020, Additional history exists COVID-19 vaccine series (2023- season) 2023 Influenza for age 9-49 10/16/2023 11/13/2009, 2005 BMI (ht and wt on same day) for age 18+ 04/11/2024 04/11/2023, 04/19/2022, 02/22/2019, Additional history exists Goals Goal Patient Goal Type Associated Problems Recent Progress Patient-Stated? Author QUALITY OF LIVING-PATIENT WILL: get infected tooth removed by oral surgeon as soon as possible. Pt will contact [facility] to discuss insurance options/coverage . Diet No Moon Christie EXERCISE-PATIENT WILL PARTICIPATE IN REGULAR EXCERCISE-by walking outdoors once the weather is nice Exercise No Moon Christie Procedures Procedure Name Priority Date/Time Associated Diagnosis Comments SCAN-RADIOLOGY REPORT 11/02/2023 12:00 AM CDT SCAN-CT INTERPRETATION 12:00 AM CDT from Last 3 Months Results * SCAN-RADIOLOGY REPORT (11/02/2023 12:00 AM CDT) Anatomical Region Laterality Modality Other Scanner OTHER * SCAN-CT INTERPRETATION (11/02/2023 12:00 AM CDT) Anatomical Region Laterality Modality Other Scanner OTHER from Last 3 Months Advance Directives * Full Code (Latest Code Status on File) Date Activated Date Inactivated Comments 07/26/2016 3:00 AM 07/27/2016 6:53 PM Care Teams [employer] Tr[employer] Relationship Specialty Start Date End Date Lucas Rasheed MD [address] [place] [address] PCP - General Family Practice 07/11/20
[2023-12-16] MEDS: ALBUTEROL SULFATE 2.5 MG/3 ML VIAL.NEB NEB ×2 (15:50→16:52)
[2023-12-16 16:10] LABS: Basophils Absolute Auto 0.07 K/uL (0.00-0.30); Basophils Percent Auto 0.8 % (0.0-3.0); Eosinophils Percent Auto 24.5 % (0.0-7.0); Hematocrit 44.4 % (37.0-53.0); Hemoglobin* 14.4 gm/dL (13.5-17.5); Immature Granulocytes Abs Auto 0.04 K/uL (0.00-0.30); Immature Granulocytes Pct Auto 0.4 %; Lymphocytes Percent Auto 17.5 % (20-44); Mean Corpuscular HGB Conc 32 gm/dL (32-36); Mean Corpuscular Hemoglobin 29 pg (26-34); Mean Corpuscular Volume 88 fL (80-100); Monocytes Percent Auto 5.9 % (0.0-11.0); Neutrophils Absolute Auto 4.71 K/uL (1.7-7.0); Neutrophils Percent Auto 50.9 % (42.0-72.0); Platelet Count* 280 K/uL (140-440); RDW Coefficient of Variation % 13.1 % (11.5-15.5); Red Blood Count 5.06 m/uL (4.30-5.90); White Blood Count* 9.26 K/uL (4.50-11.00)
--- NOTE | 2023-12-16 16:12 | ED_ITS ---
HPI - SOB/Dyspnea General Date Seen: 12/16/23 Chief Complaint: Shortness of Breath/Dyspnea Stated Complaint: asthma Time Seen by Provider: 12/16/23 15:18 Source: patient Mode of arrival: ambulatory Limitations: no limitations History of Present Illness HPI Narrative: Patient is a 48-year-old male presenting to the emergency department for an asthma exacerbation. He states symptoms started a few hours ago. Has been using his home nebulizer with just albuterol but lost his inhaler. States the inhaler those also just albuterol. States this feels just like previous asthma exacerbations. Has been having a cough and coughed up some yellow phlegm earlier. Denies fevers, chills, weakness, numbness, chest pain, abdominal pain, diarrhea, constipation. Is not aware of any sick contacts. Does state he has eczema and this is seen throughout his upper extremities. States 6 months not any different than his baseline. Has never been a smoker. No history of blood clots. Has not noticed any lower extremity swelling, hemoptysis. No recent surgeries and no history of cancer. Is not on any hormonal therapy. No other concerns noted Related Data Home Medications ?Medication ?Instructions ?Recorded ?Confirmed albuterol sulfate 2.5 mg/3 mL mg 11/10/21 (0.083 %) solution for nebulization albuterol sulfate 90 mcg/actuation inhalation 11/10/21 aerosol inhaler (Ventolin HFA) cetirizine 10 mg tablet mg 11/10/21 fluoxetine 40 mg capsule mg 11/10/21 fluticasone 250 mcg-salmeterol 50 inhalation 11/10/21 mcg/dose blistr powdr for inhalation (Advair Diskus) montelukast 10 mg tablet mg 11/10/21 triamcinolone acetonide 0.1 % applic topical 11/10/21 topical cream Previous Rx's ?Medication ?Instructions ?Recorded prednisone 50 mg tablet 50 mg PO DAILY 5 days #5 tabs 11/10/21 ipratropium 0.5 mg-albuterol 3 mg 3 ml inhalation Q6-8H PRN For 08/09/23 (2.5 mg base)/3 mL nebulization shortness of breath or wheezing soln #90 mL albuterol sulfate 90 mcg/actuation 2 puff inhalation Q4-6H PRN 12/16/23 aerosol inhaler shortness of breath or wheezing #8.5 grams prednisone 20 mg tablet 40 mg (2 x 20 mg) PO DAILY #8 tabs 12/16/23 Allergies Allergy/AdvReac Type Severity Reaction Status Date / Time cat dander Allergy Unknown Verified 11/02/23 10:06 Review of Systems Status of ROS: Reports: 10 or more systems reviewed and unremarkable except as noted in History and below PFSH PFS Social History Smoking Status: Never smoker Do you use any of these nicotine containing products: None Second hand tobacco smoke exposure: No How often do you have a drink containing alcohol: never How often do you have six or more drinks on one occasion: Never AUDIT-C Alcohol total score: 0 Non-prescribed substance use: denies use service: No Exam Narrative: Exam Narrative: Const: Well-nourished, Well-developed, in mild distress Eyes: PERRL, no conjunctival injection, and symmetrical lids HENT: Atraumatic external nose and ears. Moist mucous membranes. Neck: Symmetric, trachea midline, No thyromegaly. CVS: RRR, No murmurs or gallops. Peripheral pulses 2+ and equal in all extremities RESP: Unlabored respiratory effort. Diffuse wheezing. GI: Nontender/Nondistended, No rebound or guarding. MSK:Extremities w/o deformity, Normal Active ROM Skin: Diffuse eczema seen in his bilateral upper extremities Neuro: Normal Muscle tone, No focal neurological deficits. Psych: Awake, Alert, & Oriented x3. Appropriate mood and affect. Const: Vital Signs, click to edit/add: Vital Signs - 24 hr 12/16/23 15:10 Temperature 98.6 F Pulse Rate [Right Pulse Oximeter] 89 Respiratory Rate 22 Blood Pressure [Ri ght Upper Arm] 118/88 Pulse Oximetry 96 Oxygen Delivery Me thod Room Air Course Vital Signs Vital signs: Initial Vital Signs Temperature 98.6 F 12/16/23 15:10 Temperature Source Temporal Artery Scan 12/16/23 15:10 Pulse Rate 89 12/16/23 15:10 Respiratory Rate 22 12/16/23 15:10 Blood Pressure 118/88 12/16/23 15:10 Blood Pressure Mean 98 12/16/23 15:10 Blood Pressure Position Sitting 12/16/23 15:10 Pulse Oximetry 96 12/16/23 15:10 Oxygen Delivery Method Room Air 12/16/23 15:10 Vital Signs Temperature 98.6 F 12/16/23 15:10 Pulse Rate 89 12/16/23 15:10 Respiratory Rate 22 12/16/23 15:10 Blood Pressure 118/88 12/16/23 15:10 Pulse Oximetry 96 12/16/23 15:10 Oxygen Delivery Method Room Air 12/16/23 15:10 Temperature 98.6 F 12/16/23 15:10 Pulse Rate 89 12/16/23 15:10 Respiratory Rate 22 12/16/23 15:10 Blood Pressure 118/88 12/16/23 15:10 Pulse Oximetry 96 12/16/23 15:10 Oxygen Delivery Method Room Air 12/16/23 15:10 Medications Administered Medications: Discontinued Medications Generic Name Dose Route Start Last Admin Trade Name Freq PRN Reason Stop Dose Admin Albuterol 2.5 mg 12/16/23 15:25 12/16/23 15:50 Albuterol Sulfate 2.5 Mg/3 Ml Vial.[facility] 12/16/23 15:26 2.5 mg ONCE ONE Administration Albuterol 2.5 mg 12/16/23 16:30 12/16/23 16:52 Albuterol Sulfate 2.5 Mg/3 Ml Vial.[facility] 12/16/23 16:31 2.5 mg ONCE ONE Administration Methylprednisolone Sodium Succinate 125 mg 12/16/23 15:25 12/16/23 16:39 Methylprednisolone Sod Succ 62.5 Mg/Ml (125) IVP 12/16/23 15:26 Not Given ONCE ONE Prednisone 60 mg 12/16/23 16:01 12/16/23 16:51 Prednisone 20 Mg Tablet PO 12/16/23 16:02 60 mg ONCE ONE Administration MDM - SOB/Dyspnea MDM Narrative Medical decision making narrative: Patient is a 48-year-old male presenting for shortness of breath. The differential diagnosis of shortness of breath is broad and includes common etiologies such as COPD, asthma, pneumonia, viral syndrome, etc. More serious etiologies considered include PE, CHF, coronary artery disease, pneumothorax, aortic dissection, aortic aneurysm. He states this feels just like his previous asthma exacerbations that seems most likely. Will order chest x-ray allowed to look for signs of pneumonia. No history of CHF so BNP is not necessary. He is PERC negative PE can be ruled out. Will do a troponin an EKG for signs of coronary artery disease. With this otherwise stable vital does aortic dissection aortic aneurysm seem unlikely. Will also order CBC, magnesium, BMP. Asthma seems most likely considering he is very wheezy. Patient refused CO VID/flu/RSV swab Troponin EKG showed no concerning abnormalities. He is feeling somewhat better after the 1st albuterol treatment and his wheezing has improved. He does not want an IV and he will be given oral prednisone instead. Chest x-ray reviewed by myself the radiologist shows no concerning abnormalities. Another round of albuterol is given he is feeling much better. His wheezing has improved significantly. At this time I do not believe repeat troponin is necessary as this is almost certainly an asthma exacerbation. Patient is doing well we discharged home. Will be given a refill for his albuterol inhaler and was given a spacer to use with the inhaler. He is agreeable to this plan. Lab Data Labs: Lab Results 12/16/23 Range/Units 16:05 WBC 9.26 (4.50-11.00) K/uL RBC 5.06 (4.30-5.90) m/uL Hgb 14.4 (13.5-17.5) gm/dL Hct 44.4 (37.0-53.0) % MCV 88 (80-100) fL MCH 29 (26-34) pg MCHC 32 (32-36) gm/dL RDW Coeff of Lola 13.1 (11.5-15.5) % Plt Count 280 (140-440) K/uL Neut % (Auto) 50.9 (42.0-72.0) % Lymph % (Auto) 17.5 L (20-44) % [place] % (Auto) 5.9 (0.0-11.0) % Eos % (Auto) 24.5 H (0.0-7.0) % Baso % (Auto) 0.8 (0.0-3.0) % Neut # (Auto) 4.71 (1.7-7.0) K/uL Lymph # (Auto) 1.60 (0.90-2.90) K/uL [place] # (Auto) 0.50 (0.00-0.90) K/UL Eos # (Auto) 2.30 H (0.00-0.50) K/uL Baso # (Auto) 0.07 (0.00-0.30) K/uL Abs Immat Gran (auto) 0.04 (0.00-0.30) K/uL Imm/Tot Granulo (auto) 0.4 % Sodium 136 (135-149) mmol/L Potassium 3.7 (3.6-5.1) mmol/L Chloride 103 (96-114) mmol/L Carbon Dioxide 25 (20-32) mmol/L Anion Gap 8 (7-15) mEq/L BUN 15 (5-24) mg/dL Creatinine 1.0 (0.5-1.5) mg/dL Estimated Creat Clear 97.26 Estimated GFR 93 ml/min Glucose 92 (60-115) mg/dL Calcium 8.6 (8.4-10.6) mg/dL POC Troponin I 0.01 (0.01-0.04) ng/ml Imaging Data Chest x-ray: Attestation: I have reviewed the pertinent imaging results. Radiologist's impression: No acute or significant findings. Dictated by Mercedes Akbar MD @ 12/16/2023 3:52:03 PM ECG Data Attestation: I personally reviewed and interpreted this ECG as follows: Prior ECG tracings: available for review Interpretation: Sinus rhythm with occasional PVCs at a rate of 92 beats per minute, normal intervals, normal axis, no ST or T-wave abnormalities. Appears similar previous EKG on file Discharge Plan Discharge Clinical Impression: Asthma with acute exacerbation Qualifiers: Asthma severity: mild Asthma persistence: unspecified Qualified Code(s): J45.901 - Unspecified asthma with (acute) exacerbation Patient Disposition: Home, Self-Care Condition: Improved Instructions: Asthma (DC) Additional Instructions: Take the prednisone as directed the next 4 days. Make sure to use the provided spacer whenever you use your inhalers. A new inhaler prescription was sent to your pharmacy. Return for new or worsening symptoms. Prescriptions: New albuterol sulfate 90 mcg/actuation HFA aerosol inhaler 2 puff inhalation Q4-6H PRN (Reason: shortness of breath or wheezing) Qty: 8.5 0RF prednisone 20 mg tablet 40 mg PO DAILY Qty: 8 0RF No Action ipratropium-albuterol 0.5 mg-3 mg(2.5 mg base)/3 mL solution for nebulization 3 ml inhalation Q6-8H PRN (Reason: For shortness of breath or wheezing) Qty: 90 0RF fluoxetine 40 mg capsule Patient Comments: TAKE ONE CAPSULE BY MOUTH EVERY DAY IN THE MORNING. fluticasone propion-salmeterol [Advair Diskus] 250-50 mcg/dose blister with device INHALATION Patient Comments: INHALE ONE PUFF BY MOUTH TWICE DAILY albuterol sulfate 2.5 mg /3 mL (0.083 %) solution for nebulization Patient Comments: INHALE 1 VIAL (3ml) VIA NEBULIZER EVERY 4 HOURS NEEDED FOR SHORTNESS OF BREATH / WHEEZING. cetirizine 10 mg tablet Patient Comments: TAKE ONE TABLET BY MOUTH ONE TIME DAILY triamcinolone acetonide 0.1 % cream TOPICAL Patient Comments: Apply topically to affected area(s) 3 times daily. Do not use for more than 2 weeks in a row montelukast 10 mg tablet Patient Comments: Take 1 Tablet (10 mg) by mouth at bedtime. albuterol sulfate [Ventolin HFA] 90 mcg/actuation HFA aerosol inhaler INHALATION Patient Comments: INHALE 2 PUFFS BY MOUTH 4 TIMES DAILY IF NEEDED FOR SHORTNESS OF BREATH OR WHEEZING. prednisone 50 mg tablet 50 mg PO DAILY 5 Days Qty: 5 0RF Follow Up/Referrals: WES GOMEZ DO [Primary Care Provider] - Stand Alone Forms: [employer] Info Instructions
[2023-12-16 16:18] LABS: Slide Review Reflex No
[2023-12-16 16:22] LABS: Troponin, Point-of-Care* 0.01 ng/ml (0.01-0.04)
[2023-12-16 16:24] LABS: Chloride* 103 mmol/L (96-114); Potassium* 3.7 mmol/L (3.6-5.1); Sodium* 136 mmol/L (135-149)
[2023-12-16 16:26] LABS: Est. Creatinine Clearance* 97.26; Estimated Glomerular Filt Rate 93 ml/min
[2023-12-16 16:27] LABS: Anion Gap 8 mEq/L (7-15); Blood Urea Nitrogen* 15 mg/dL (5-24); Calcium* 8.6 mg/dL (8.4-10.6); Carbon Dioxide* 25 mmol/L (20-32); Glucose* 92 mg/dL (60-115)
[2023-12-16] MEDS: predniSONE 20 MG TABLET 60 MG PO (16:51)
== END 2023-12-16 17:38 | disposition home or self-care (01) ==
PROVIDERS: Emergency Provider Student in an Organized Health Care Education/Training Program; PCP Student in an Organized Health Care Education/Training Program
DX: J45.901 Unspecified asthma with (acute) exacerbation (principal)
CPT/HCPCS: 36415; 71046; 80048; 84484; 85025; 87631; 93005; 94640; 99283; 99284; J2919; J7512

== ENCOUNTER 2024-12-12 17:44 | Emergency (ER) | payer BC, SELFPAY ==
[2024-12-12] VITALS (7 sets, daily range): BP systolic 135–145; BP diastolic 85–95; PULSE 78–92; RESP 18–28; TEMP 37.1; O2SAT 95–97; BMI 22.6
--- OUTSIDE RECORDS SUMMARY | 2024-12-12 17:46 | XMS_ITS | Clinical Summary ---
Author Organization [facility] Address [address] [place] [id number] Care Team Providers Care Skin Former Name Role Phone Lucas Rasheed MD Primary Care Provider Allergies Active Allergy Reactions Criticality Noted Date Comments Cats (Fur, Dander, Saliva) 01/27/2010 House Dust Shortness Of Breath 03/05/2008 Unlisted Allergen (Include Detail In Comments) Other - Describe In Comment Field 06/28/2006 spicy foods Medications NebulizerIndicat ions:Moderate persistent asthma without complication (HC) Nebulizer, disposable neb kit x 4, reuseable neb kit x 1, mask x 1, filters x 1. Frequency of use: daily; Medication: albuterol 0.083% (2.5 mg/3 mL) neb solution Length of need: 99 months 1 Each 4 Active budesonide-formo teroL (SYMBICORT) 160-4.5 mcg/actuation (160-4.5 mcg each actuation) inhalerIndicatio ns:Moderate persistent asthma without complication (HC) Inhale 2 puffs twice daily and 1-2 puffs every 4 hours as needed for asthma exacerbations. Max 12 puffs per day. 1 Each 5 Active cetirizine (ZYRTEC) 10 mg tabletIndication s:Seasonal allergic rhinitis due to pollen Take 1 Tablet (10 mg) by mouth once daily. 90 Tablet 3 5 Active albuterol 0.083% (2.5 mg/3 mL) neb solutionIndicati ons:Moderate persistent asthma without complication (HC) USE ONE VIAL IN NEBULIZER EVERY 6 HOURS NEEDED FOR SHORTNESS OF BREATH 165 mL 2 5 Active triamcinolone (ARISTOCORT; KENALOG) 0.1 % creamIndications :Psoriasis APPLY TO AFFECTED AREA(S) TOPICALLY THREE TIMES DAILY. DO NOT USE MORE THAN 2 WEEKS WITHOUT INTERRUPTION ON ONE AREA. 454 g 5 Active Ventolin HFA 90 mcg/actuation inhalerIndicatio ns:Moderate persistent asthma without complication (HC) INHALE 2 PUFFS BY MOUTH EVERY 4-6 HOURS NEEDED FOR SHORTNESS OF BREATH OR WHEEZING 18 g 2 5 Active Active Problems Problem Noted Date Diagnosed Date Moderate persistent asthma without complication 03/15/2024 Eczema 09/28/2021 History of cholecystectomy 09/28/2021 Psoriasis 10/19/2011 Social maladjustment 11/13/2009 Seborrhea 10/17/2008 Allergic rhinitis, cause unspecified 06/11/2008 Anxiety and depression Resolved Problems Problem Noted Date Diagnosed Date Resolved Date Anxiety 03/15/2018 12/11/2020 Recurrent major depressive d isorder, in full remission 04/14/2017 12/11/2020 Mild intermittent asthma 07/26/2016 Acute gallstone pancreatitis 07/26/2016 2020 Medical Home 03/06/2010 07/20/2010 Overview (03/06/2010): 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 Anxiety state, unspecified 08/22/2007 0 2020 Dysthymic disorder 08/22/2007 Unspecified asthma(493.90) 05/23/2006 0 2020 Encounters Date Type Department Care Team Description 12/11/2024 Telephone [facility] [address] [place] [address] Bakari Davila DO Form 12/10/2024 2:05 PM CDT Telemedicine [facility] [address] [place] [place] [address] Bakari Davila DO 12/07/2024 Travel 11/06/2024 Refill [facility] [address] [place] [address] Lucas Rasheed MD Refill Request (Ventolin Hfa) 10/16/2024 Refill [facility] [address] [place] [address] Lucas Rasheed MD Refill Request (Triamcinolone) 10/10/2024 Telephone [facility] [address] [place] [address] Lucas Rasheed MD Appointment 10/02/2024 Telephone [facility] [address] [place] [address] Lucas Rasheed MD Form from Last 3 Months Immunizations Immunization Administration Dates Next Due Influenza, IIV3 (Age [...] 3 06/02/2022 Social Connections Answer Date Recorded Do you often feel lonely or isolated from those around you? 0 03/14/2024 Financial Resource Strain Answer Date R ecorded Difficulty of Paying Living Expenses 3 03/14/2024 Difficulty of Paying Living Expenses Not on file 03/14/2024 Food Insecurity Answer Date Recorded Do you worry your food will run out before you are able to buy more? 1 03/14/2024 Transportation Needs Answer Date Record ed Does lack of transportation keep you from medica l appointments? 2 03/14/2024 Does lack of transportation keep you from work, meetings or getting things that you need? 1 03/14/2024 Housing Stability Answer Date Recorded What is your housing situation today? 1 03/14/2024 Utilities Answer Date Recorded Do you have trouble paying f or utilities (for example, heat, electricity, water, phone)? 1 03/14/2024 Sex and Gender Information Value Date Recorded Sex Assigned at Not on file Legal Sex Male 5:19 AM [employer]NA[employer] Gender Identity Not on file Sexual Orientation Not on file Occupation Industry Job Start Date Job End Date unemployed Not on file Not on file Not on file Obstetrics History Last Filed Vital Signs Vital Sign Reading Time Taken Comments Blood Pressure 136/84 03/15/2024 4:06 PM [employer] Pulse 88 03/15/2024 4:06 PM [employer] Temperature 36.8 C (98.3 F) 04/28/2020 3:03 PM CDT Respiratory Rate 16 07/27/2016 9:00 AM CDT Oxygen Saturation 93% 03/15/2024 4:06 PM [employer] Inhaled Oxygen Concentration - - Weight 75.7 kg (166 lb 12.8 oz) 03/15/2024 4:06 PM [employer] Height 179.1 cm (5' 10.51) 03/15/2024 4:[address] Body Mass Index 23.59 03/15/2024 4:06 PM [employer] Plan of Treatment Upcoming Encounters Date Type Department Care Team (Late st Contact Info) Description 12/24/2024 1:15 PM [employer] Office Visit [facility] [address] [place] [address] Lucas Rasheed MD [address] [place] [address] Health Maintenance Due Date Last Done Comments HIV for age 15-65 07/12/1991 Hepatitis C screening for ag e 18-79 1994 Hepatitis B series for 19+ ( 1 of 3 - 19+ 3-dose series) 07/12/1995 Pneumococcal series for age 6-49 (1 of 2 - PCV) 07/12/1995 Tetanus booster 01/18/2021 01/18/2011 (Declined) Colonoscopy through age 75 2021 Lipids for age 45-75 2021 Depression screening for age 12+ 06/03/2023 06/02/2022, 04/19/2022, 2020, Additional history exists Influenza Vaccine (#1) 2024 11/13/2009, 2005 BMI (ht and wt on same day) for age 18+ 03/15/2025 03/15/2024, 04/11/2023, 04/19/2022, Additional history exists RSV vaccine for adults or (1 - 1-dose 75+ series) 07/12/2051 Goals Goal Patient Goal Type Associated Problems Recent Progress Patient-Stated? Author QUALITY OF LIVING-PATIENT WILL: get infected tooth removed by oral surgeon as soon as possible. Pt will contact [facility] to discuss insurance options/coverage . Diet No Moon Christie EXERCISE-PATIENT WILL PARTICIPATE IN REGULAR EXCERCISE-by walking outdoors once the weather is nice Exercise No Moon Christie Insurance [facility] Advance Directives * Full Code (Latest Code Status on File) Date Activated Date Inactivated Comments 07/26/2016 3:00 AM 07/27/2016 6:53 PM Care Teams Skin Former Relationship Specialty Start Date End Date Lucas Rasheed MD [address] [place] [address] PCP - General Family Practice 07/11/20
--- NOTE | 2024-12-12 17:55 | CRLHL7_ITS ---
For Patients: As a result of the Century Cures Act, medical imaging exams and procedure reports are released immediately into your electronic medical record. You may view this report before your referring provider. If you have questions, please contact your health care provider. INDICATION: Shortness of breath, unintentional weight loss. TECHNIQUE: CT chest, abdomen and pelvis acquired without contrast. COMPARISON: November 02, 2023. FINDINGS: CHEST: Cardiovascular structures: Heart size is normal. Thoracic aorta and main pulmonary artery are normal in caliber. Mediastinum and vielka: No mass or adenopathy. Lungs and pleura: Interval increase in size of indeterminate 14 millimeter left paravertebral nodule of uncertain clinical significance. Otherwise, no concerning pulmonary nodules, focal consolidations, pleural effusions, or pneumothoraces. Chest wall and axilla: Similar mildly enlarged axillary lymph nodes. Bones: No suspicious bone lesions. Unremarkable for age. ABDOMEN AND PELVIS: Liver: Unremarkable. Gallbladder and bile ducts: Prior cholecystectomy. Pancreas: Unremarkable. Spleen: Unremarkable. Adrenal glands: Unremarkable. Kidneys: Unremarkable. GI tract: Diffuse circumferential wall thickening of the rectum. Moderate colonic stool burden. No bowel obstruction. Normal appendix.. Vascular structures: Abdominal aorta is normal in caliber. Lymph nodes: Multiple enlarged bilateral inguinal lymph nodes. Miscellaneous: Unremarkable. No free air or significant free fluid. Pelvic Organs: Unremarkable. Bones: No suspicious bone lesions. Unremarkable for age. IMPRESSION: Diffuse circumferential wall thickening of the rectum. Although this could represent proctitis in the appropriate clinical setting, recommend endoscopic evaluation to exclude mass. Similar mildly enlarged bilateral axillary lymph nodes. Additional multiple enlarged bilateral inguinal lymph nodes. Recommend correlation with physical examination. This is a nonspecific finding, but lymphoproliferative disorder is not excluded. These are likely amenable to ultrasound-guided biopsy if medically necessary. Interval increase in size of indeterminate 14 millimeter left paravertebral nodule of uncertain clinical significance, thought to be arising from the pleura or the adjacent paravertebral soft tissues. Differential is broad, including nerve sheath tumors. Recommend outpatient nonemergent contrast-enhanced MRI of the spine. Please note that all CT scans at this facility use dose modulation, iterative reconstruction, and/or weight-based dosing when appropriate to reduce radiation dose to as low as reasonably achievable. Dictated by Romeo Lombardi MD @ 12/12/2024 7:01:53 PM (Electronically Signed)
[2024-12-12] MEDS: IPRAT-ALBUT 0.5-2.5 MG/3 ML NEB 1 NEB IH (18:00)
--- NOTE | 2024-12-12 18:22 | ED_ITS ---
HPI - General Adult General Date Seen: 12/12/24 Chief complaint: Shortness of Breath/Dyspnea Stated complaint: asthma complications Time Seen by Provider: 12/12/24 17:47 History of Present Illness HPI narrative: Patient is a 49-year-old male seen here multiple times in the past with asthma exacerbations. Presents today with increased wheezing and shortness of breath over the course of the day. He says he has previously been on Symbicort but does not have a current prescription and is not taking that. He does have albuterol but, when he gets worse, feels he does better with DuoNeb which he does not have at home. He denies any fevers or chest pain. I saw him about a year ago and did a CT scan of the chest at that time. There was a nodule noted that was felt to be likely benign but six-month follow-up was recommended. Patient does not believe he had any follow-up. He also notes he has had significant weight loss of about 30 kilos in the past year, he says this was not intentional but notes that he has ?a fast metabolism. Continues to smoke. Related Data Home Medications ?Medication ?Instructions ?Recorded ?Confirmed albuterol sulfate 2.5 mg/3 mL mg 11/10/21 (0.083 %) solution for nebulization albuterol sulfate 90 mcg/actuation inhalation 11/10/21 aerosol inhaler (Ventolin HFA) cetirizine 10 mg tablet mg 11/10/21 fluoxetine 40 mg capsule mg 11/10/21 fluticasone 250 mcg-salmeterol 50 inhalation 11/10/21 mcg/dose blistr powdr for inhalation (Advair Diskus) montelukast 10 mg tablet mg 11/10/21 triamcinolone acetonide 0.1 % applic topical 11/10/21 topical cream Previous Rx's ?Medication ?Instructions ?Recorded prednisone 50 mg tablet 50 mg PO DAILY 5 days #5 tab s 11/10/21 ipratropium 0.5 mg-albuterol 3 mg 3 ml inhalation Q6-8 H PRN For 08/09/23 (2.5 mg base)/3 mL nebulization shortness of breath or wheezing soln #90 mL albuterol sulfate 90 mcg/actuation 2 puff inhalation Q 4-6H PRN 12/16/23 aerosol inhaler shortness of breath or wheez ing #8.5 grams prednisone 20 mg tablet 40 mg (2 x 20 mg) PO DAILY # 8 tabs 12/16/23 budesonide-formoterol HFA 160 1 inh inhalation BID #10 .2 grams 12/12/24 mcg-4.5 mcg/actuation aerosol inhaler (Symbicort) prednisone 20 mg tablet 20 mg PO BID #10 tabs Allergies Allergy/AdvReac Type Severity Reaction Status Date / Time cat dander Allergy Unknown Verified 11/02/23 10:06 Review of Systems Status of ROS: Reports: 10 or more systems reviewed and unremarkable except as noted in History and below [facility] Social History Smoking Status: Never smoker Do you use any of these nicotine containing products: None Second hand tobacco smoke exposure: No How often do you have a drink containing alcohol: never How often do you have six or more drinks on one occasion: Never AUDIT-C Alcohol total score: 0 Non-prescribed substance use: denies use service: No Exam Narrative: Exam Narrative: Vital signs reviewed In general, alert, nontoxic male, looks significantly older than his stated age. Head: Normocephalic, atraumatic. Eyes: Sclera clear. Pupils equal and reactive. ENT: Mucous membranes moist. Neck: Supple without adenopathy. Heart: Regular rate and rhythm without murmur. Lungs: Diffuse wheezes, mild tachypnea. No other increased work of breathing. Abdomen: Soft, nontender to palpation. Extremities: Well perfused, pulses intact. No significant edema. No calf tenderness. Neurologic: Alert, conversant. Speech fluent, face symmetric. Moves all extremities equally. Skin: Warm, dry well perfused. Affect: Normal. Const: Vital Signs, click to edit/add: Vital Signs - 24 hr 12/12/24 17:46 Temperature 98.7 F Pulse Rate [Pulse Oximeter] 92 Respiratory Rate 28 H Blood Pressure [Ri ght Upper Arm] 145/91 H Pulse Oximetry 95 Oxygen Delivery Me thod Room Air Course Course ED Course: Will give a DuoNeb as well as some prednisone here. Looking back through his records I do not see any follow-up on that CT, particularly given his weight loss I am going to repeat a chest CT today. Also discussed with him but it would not be unreasonable just to do CT scan of the abdomen as well, he is agreeable to that but declines contrast. He had a DuoNeb, feels improved, wheezing resolved. O2 sats 97 98%. I reviewed his CT reports, there is been interval increase of the indeterminate left paravertebral nodule, I think actually that is on the right however. He also has general rectal thickening which could be consistent with proctitis but he does not have any symptoms that suggest proctitis, colonoscopy is recommended to exclude mass. He also has enlarged axillary and inguinal lymph nodes of undetermined significance. I have discussed all of this with him. Says that he has an appointment with primary care on December 24. He is careful of how much he wants to do in the emergen cy department because he says it is very expensive. I have reinforced with him that follow-up the of these several items as extremely important. He believes that his weight loss is because he has had some changes in his government support with the government shutdown and that this is impacted how much he is eating. Reviewed with him that it certainly may be that he simply taking in less food, but but these other issues need to be resolved make sure he does not have an oncologic process contributing to his weight loss. I gave him a copy of his CT report and asked him to simply show that to his primary doctor so he can get those tests arranged. I also prescribed prednisone and Symbicort for his respiratory symptoms. Return at any time for worsening or new symptoms such as high fever. Vital Signs Vital signs: Initial Vital Signs Temperature 98.7 F 12/12/24 17:46 Temperature Source Temporal Artery Scan 12/12/24 17:46 Pulse Rate 92 12/12/24 17:46 Respiratory Rate 28 H 12/12/24 17:46 Blood Pressure 145/91 H 12/12/24 17:46 Blood Pressure Mean 109 H 12/12/24 17:46 Blood Pressure Position Sitting 12/12/24 17:46 Pulse Oximetry 95 12/12/24 17:46 Oxygen Delivery Method Room Air 12/12/24 17:46 Vital Signs Temperature 98.7 F 12/12/24 17:46 Pulse Rate 92 12/12/24 17:46 Respiratory Rate 28 H 12/12/24 17:46 Blood Pressure 145/91 H 12/12/24 17:46 Pulse Oximetry 95 12/12/24 17:46 Oxygen Delivery Method Room Air 12/12/24 17:46 Temperature 98.7 F 12/12/24 17:46 Pulse Rate 92 12/12/24 17:46 Respiratory Rate 28 H 12/12/24 17:46 Blood Pressure 145/91 H 12/12/24 17:46 Pulse Oximetry 95 12/12/24 17:46 Oxygen Delivery Method Room Air 12/12/24 17:46 Medications Administered Medications: Discontinued Medications Generic Name Dose Route Start Last Admin Trade Name Edvin PRN Reason Stop Dose Admin Albuterol/Ipratropium 1 neb 12/12/24 17:54 12/12/24 18:00 Iprat-Albut 0.5-2.5 Mg/3 Ml Neb IH 12/12/24 17:55 1 neb ONCE ONE Administration Prednisone 60 mg 12/12/24 17:54 12/12/24 18:11 Prednisone 20 Mg Tablet PO 12/12/24 17:55 60 mg ONCE ONE Administration Medical Decision Making Lab Data Labs: Lab Results 12/12/24 Range/Units 17:50 SARS-CoV-2 (PCR) Negative SARS-CoV-2 (Negative) Influenza Type A (PCR) Negative PCR FLU A (Negative) Influenza Type B (PCR) Negative PCR FLU B (Negative) RSV (PCR) Negative PCR RSV (Negative) Imaging Data CT Chest/Ab/Pelvis: Attestation: I have reviewed the pertinent imaging results. Radiologist's impression: Patient: Lucas Jeronimo MR#: [id number] : 1975 Acct:[id number] Loc: ED Service Date: 12/12/[address]: Ordering Physician: Phoebe Anderson M.D. Date of Service: 12/12/24 Procedure(s): CT chest abdomen pelv wo con Accession Number(s): [id number] cc: Phoebe Anderson M.D.; WES GOMEZ D.O.~ For Patients: As a result of the Cures Act, medical imaging exams and procedure reports are released immediately into your electronic medical record. You may view this report before your referring provider. If you have questions, please contact your health care provider. INDICATION: Shortness of breath, unintentional weight loss. TECHNIQUE: CT chest, abdomen and pelvis acquired without contrast. COMPARISON: November 02, 2023. FINDINGS: CHEST: Cardiovascular structures: Heart size is normal. Thoracic aorta and main pulmonary artery are normal in caliber. Mediastinum and vielka: No mass or adenopathy. Lungs and pleura: Interval increase in size of indeterminate 14 millimeter left paravertebral nodule of uncertain clinical significance. Otherwise, no concerning pulmonary nodules, focal consolidations, pleural effusions, or pneumothoraces. Chest wall and axilla: Similar mildly enlarged axillary lymph nodes. Bones: No suspicious bone lesions. Unremarkable for age. ABDOMEN AND PELVIS: Liver: Unremarkable. Gallbladder and bile ducts: Prior cholecystectomy. Pancreas: Unremarkable. Spleen: Unremarkable. Adrenal glands: Unremarkable. Kidneys: Unremarkable. GI tract: Diffuse circumferential wall thickening of the rectum. Moderate colonic stool burden. No bowel obstruction. Normal appendix.. Vascular structures: Abdominal aorta is normal in caliber. Lymph nodes: Multiple enlarged bilateral inguinal lymph nodes. Miscellaneous: Unremarkable. No free air or significant free fluid. Pelvic Organs: Unremarkable. Bones: No suspicious bone lesions. Unremarkable for age. IMPRESSION: Diffuse circumferential wall thickening of the rectum. Although this could represent proctitis in the appropriate clinical setting, recommend endoscopic evaluation to exclude mass. Similar mildly enlarged bilateral axillary lymph nodes. Additional multiple enlarged bilateral inguinal lymph nodes. Recommend correlation with physical examination. This is a nonspecific finding, but lymphoproliferative disorder is not excluded. These are likely amenable to ultrasound-guided biopsy if medically necessary. Interval increase in size of indeterminate 14 millimeter left paravertebral nodule of uncertain clinical significance, thought to be arising from the pleura or the adjacent paravertebral soft tissues. Differential is broad, including nerve sheath tumors. Recommend outpatient nonemergent contrast-enhanced MRI of the spine. Please note that all CT scans at this facility use dose modulation, iterative reconstruction, and/or weight-based dosing when appropriate to reduce radiation dose to as low as reasonably achievable. Dictated by Romeo Lombardi MD @ 12/12/2024 7:01:53 PM Discharge Plan Discharge Clinical Impression: Asthma with acute exacerbation, Unintentional weight loss, Pleural mass Patient Disposition: Home, Self-Care Condition: Improved Instructions: Asthma (DC) Additional Instructions: I have prescribed prednisone for you to take for your asthma flare. I have also sent a prescription for Symbicort for you. Continue to use your rescue inhaler as needed. As we discussed, I am a little concerned about the weight loss you h ave had. It is important that we rule out any medical problems that might be contributing to this before we assume that it is just related to decreased food intake. Please discuss the CT report with your primary doctor so that here she can help you set up the appropriate follow-up testing including blood work, colonoscopy, contrast MRI of the spine. Return any time for worsening shortness of breath, high fevers, or other severe symptoms. Prescriptions: New budesonide-formoterol [Symbicort] 160-4.5 mcg/actuation HFA aerosol inhaler 1 inh inhalation BID Qty: 10.2 2RF prednisone 20 mg tablet 20 mg PO BID Qty: 10 0RF No Action ipratropium-albuterol 0.5 mg-3 mg(2.5 mg base)/3 mL solution for nebulization 3 ml inhalation Q6-8H PRN (Reason: For shortness of breath or wheezing) Qty: 90 0RF albuterol sulfate 90 mcg/actuation HFA aerosol inhaler 2 puff inhalation Q4-6H PRN (Reason: shortness of breath or wheezing) Qty: 8.5 0RF prednisone 20 mg tablet 40 mg PO DAILY Qty: 8 0RF fluoxetine 40 mg capsule Patient Comments: TAKE ONE CAPSULE BY MOUTH EVERY DAY IN THE MORNING. fluticasone propion-salmeterol [Advair Diskus] 250-50 mcg/dose blister with device INHALATION Patient Comments: INHALE ONE PUFF BY MOUTH TWICE DAILY albuterol sulfate 2.5 mg /3 mL (0.083 %) solution for nebulization Patient Comments: INHALE 1 VIAL (3ml) VIA NEBULIZER EVERY 4 HOURS NEEDED FOR SHORTNESS OF BREATH / WHEEZING. cetirizine 10 mg tablet Patient Comments: TAKE ONE TABLET BY MOUTH ONE TIME DAILY triamcinolone acetonide 0.1 % cream TOPICAL Patient Comments: Apply topically to affected area(s) 3 times daily. Do not use for more than 2 weeks in a row montelukast 10 mg tablet Patient Comments: Take 1 Tablet (10 mg) by mouth at bedtime. albuterol sulfate [Ventolin HFA] 90 mcg/actuation HFA aerosol inhaler INHALATION Patient Comments: INHALE 2 PUFFS BY MOUTH 4 TIMES DAILY IF NEEDED FOR SHORTNESS OF BREATH OR WHEEZING. prednisone 50 mg tablet 50 mg PO DAILY 5 Days Qty: 5 0RF Follow Up/Referrals: WES GOMEZ DO [Primary Care Provider, Family Practice] Stand Alone Forms: MyHealth Info Instructions
[2024-12-12 18:41] LABS: PCR FLU A Negative PCR FLU A (Negative); PCR FLU B Negative PCR FLU B (Negative); PCR RSV Negative PCR RSV (Negative); SARS PCR* Negative SARS-CoV-2 (Negative)
== END 2024-12-12 19:48 | disposition home or self-care (01) ==
PROVIDERS: Emergency Provider Emergency Medicine; PCP Student in an Organized Health Care Education/Training Program
DX: J45.901 Unspecified asthma with (acute) exacerbation (principal); R63.4 Abnormal weight loss; J94.9 Pleural condition, unspecified; F17.200 Nicotine dependence, unspecified, uncomplicated; Z79.51 Long term (current) use of inhaled steroids
CPT/HCPCS: 71250; 74176; 87631; 99284; 99285; J7512